=== PATIENT | male | born 1950 | race Caucasian/White ===

== ENCOUNTER → 2016-09-08 | Outpatient (CLI) | payer MEDICARE ==
[~2016-09-08] MED LIST: ASPIRIN81 MG PO; ASPIRINEC PO; BENADRYL ALLERG25 M1 PO; CLARINEX5 MG PO; FAMOTIDINE20 M1 PO; FLONASE ALLERG9.9 ML; HUMALOG100 U/ML SQ; HUMALOG100 U/ML SUBQ; HYZAAR PO; LANTUS100 U/ML SUBQ; LORTAB 5-325 M1 EACH PO; METFORMIN PO; PENICILLIN PO; PEPCID40 MG PO; PRAVACHOL PO; PREDNISONE PO; RAPAFLO8 MG PO; VIMOVO DR 375-1 EACH PO; ZYRTEC10 M2 PO; [UNRECOGNIZED DRUG - OTHER] PO
--- NOTE | ~2016-09-08 | US85 ---
[facility] A Service of [facility] RADIOLOGY TEXT RESULTS PATIENT: ENRIQUE DOHERTY LOCATION: SNIV : 50 UNIT #: [id number] AGE: [address]: LAUREN SANCHEZ MD SEX: M ORDER DR: [id number] [place] [id number] O MR#: [id number] Acc #: [id number] NAME: ENRIQUE DOHERTY : 1950 SEX: M STUDY DATE/TIME: 09/08/2016 13:18 UNIT: SNIV ROOM: STUDY DESCRIPTION: [facility] [employer] [facility] Attending Physician: Lauren Sanchez Referring Physician: Lauren Sanchez Ordering Physician: Yonas Sanchez M.D. Primary Care Physician: Lauren Sanchez MEDICAL IMAGING REPORT This report is preliminary unless electronic signature is present. EXAM Right lower extremity venous duplex, 09/08/16 HISTORY Right leg swelling FINDINGS Duplex imaging of the right lower extremity reveals patent femoral popliteal tibial peroneal veins with normal venous filling of all the visualized veins. No evidence of thrombosis is seen. IMPRESSION No evidence of DVT is seen in the right lower extremity. The above results were communicated to Dr. Sanchez at [phone]. Dictated by... Alexei Storm M.D. THIS IS AN ELECTRONICALLY VERIFIED REPORT Alexei Storm M.D. at 09/11/2016 2:05 PM /[email or web address] A Service of [facility] RADIOLOGY TEXT RESULTS PATIENT: ENRIQUE DOHERTY LOCATION: SNIV : 50 UNIT #: [id number] AGE: [address]: LAUREN SANCHEZ MD SEX: M ORDER DR: TD: 09/08/2016 19:03 JOB #: [id number] MEDICAL IMAGING REPORT Page 1 of 1
== END | disposition home or self-care (01) ==
LOC: SNIV 12:46
DX: M79.89 Other specified soft tissue disorders (principal)
CPT/HCPCS: 93971